=== PATIENT | female | born 1990 | race Two or more races ===

== ENCOUNTER 2017-02-08 12:13 | Day surgery (SDC) | payer BC ==
[~2017-02-08] VITALS: Ht 162.6 cm; Wt 89.7 kg
[~2017-02-08 12:13] MED LIST: CEFAZOLIN 2 GM/50 ML (PMX) 50 ML IVPB ONE; SOD CHLORIDE 0.9% 1,000 ML IV SCH
[2017-02-08 13:30] VITALS: Ht 162.6 cm; Wt 89.7 kg
[2017-02-08 13:31] VITALS: BP 123/71; PULSE 86; RESP 16
[2017-02-08] MEDS ORDERED: BUPIVACAINE 0.25% (MPF) 30 ML INJ ONE (15:06)
[2017-02-08] MEDS ORDERED: MIDAZOLAM 1 MG/ML 2 ML INJ ONE (15:26)
[2017-02-08] MEDS ORDERED: METOCLOPRAMIDE 10 MG INJ ONE (15:26)
[2017-02-08] MEDS ORDERED: PROPOFOL 20 ML ONE (15:27)
[2017-02-08] MEDS ORDERED: KETOROLAC 30 MG INJ ONE (15:28)
[2017-02-08] MEDS ORDERED: ONDANSETRON 4 MG INJ ONE (15:28)
[2017-02-08] MEDS ORDERED: CEFAZOLIN 1 GM INJ ONE (15:36)
[2017-02-08] MEDS ORDERED: FENTAnyl 50 MCG/ML VIAL ONE (15:36)
[2017-02-08] MEDS ORDERED: DIPHENHYDRAMINE 50 MG INJ IV PRN (16:00)
[2017-02-08] MEDS ORDERED: ONDANSETRON 4 MG INJ IV PRN (16:00)
[2017-02-08] MEDS ORDERED: HYDROmorphONE (0.2 MG/ML) 10ML SYG IV PRN ×3 (16:00)
[2017-02-08] MEDS ORDERED: MEPERIDINE 25 MG INJ IV PRN (16:00)
[2017-02-08] MEDS ORDERED: OXYCODONE/ACETAMINOPHEN (5/325) TAB PO PRN ×2 (16:00)
--- NOTE | 2017-02-08 16:07 | OPR ---
Date/Time of Note Date/Time of Note DATE: 02/08/17 TIME: 16:05 Operative Report Procedure Date: Feb 08, 2017 Preoperative Diagnosis left submandibular mass Postoperative Diagnosis same Operation/Procedure Performed 1.excision of left submandibular mass 4 cm x 2 cm 2. localized adjacent tissue transfer with the use of skin flaps 8 sq cm defect 3. therapeutic injection of subcutaneous local anesthesia Surgeon see signature line [employer] none Anesthesia Type: general Estimated Blood Loss: 0 - 10 ml's Transfusion none Specimen left submandibular mass Grafts/Implants none Complications none Pt Condition Post Procedure: stable Indications This is a 26-year-old female with a left submandibular mass. She requests surgical excision. Risks alternatives benefits and percent were discussed the patient. Patient's best understanding consents to the operation. Procedure Description Patient is taken to the OR and prepped and draped in usual sterile fashion. Surgical timeout was performed. IV antibiotics were given. Elliptical incision is made with a 15 blade around the left submandibular mass. Dissection Carrs carried onto the mass and circumferentially excised. There is good hemostasis. Due to the large tissue defect localized adjacent tissue transfer with these of skin flaps were performed multilayer closure with interrupted 3-0 Vicryl and running 3-0 Vicryl. Therapeutic contains local anesthesia was injected throughout the incision site. Dermabond was applied. Janki MILLER Feb 08, 2017 16:07
[2017-02-08] MEDS ORDERED: IBUPROFEN 600 MG TAB PO ONE (16:30)
[2017-02-08 16:34] VITALS: BP 113/62; PULSE 84; RESP 18
[2017-02-08 16:38] VITALS: BP 112/59; PULSE 86; RESP 14
[2017-02-08 16:39] VITALS: BP 113/60; PULSE 88; RESP 17
[2017-02-08 16:44] VITALS: BP 114/62; PULSE 89
[2017-02-08 17:05] VITALS: BP 111/68; PULSE 95
== END 2017-02-08 17:25 | disposition home or self-care (01) ==
LOC: SDS 12:13
PROVIDERS: ATTEND Surgery
DX: L72.0 Epidermal cyst (principal)
CPT/HCPCS: 14040; 88307; J0690; J1885; J2250; J2405; J2765; J3010; Z7512; Z7610